=== PATIENT | male | born 1965 | race Caucasian/White ===

== ENCOUNTER 2020-01-06 09:44 | Emergency (ER) | payer OTHER ==
[2020-01-06] MEDS ORDERED: Fentanyl 100 MCG/2 ML VIAL ONE ×2 (09:59→10:34)
[2020-01-06] MEDS ORDERED: Ketorolac Tromethamine 30 MG/ML VIAL ONE (10:00)
[2020-01-06] MEDS ORDERED: Ondansetron PF 4 MG/2 ML Vial ONE (10:00)
[2020-01-06 10:22] LABS: #Basophils 0.1 thou/uL (0.0-0.2); #Eosinphils 0.1 thou/uL (0.0-0.7); #Lymphocytes 2.1 thou/uL (1.20-3.40); #Monocytes 0.6 thou/uL (0.11-0.59); #Neutrophils 9.9 thou/uL (1.40-6.50); %Eosinophils 0.6 % (0.0-10.0); %Lymphocytes 16.1 % (21.0-51.0); %Neutrophils 77.2 % (42.0-75.0); ALT (SGPT) 31 U/L (8-55); AST (SGOT) 21 U/L (5-34); Albumin 4.7 g/dL (3.5-5.0); Alkaline Phosphatase 73 U/L (40-110); Anion Gap 17 mmol/L (10-20); BUN (Urea Nitrogen) 9 mg/dL (8.4-25.7); Bilirubin, Total 0.3 mg/dL (0.2-1.2); Calc. Creatinine Clearance 0 mL/min (70-130); Calcium 8.8 mg/dL (7.8-10.44); Carbon Dioxide 24 mmol/L (22-29); Chloride 102 mmol/L (98-107); Estimated GFR-MDRD 70; Globulin 3.3 g/dL (2.4-3.5); Glucose 150 mg/dL (70-105); Hemoglobin 14.8 g/dL (14.0-18.0); Lipase 30 U/L (8-78); Mean Corpuscular HGB CONC 30.8 g/dL (32.0-36.0); Mean Corpuscular Hemoglobin 28.9 pg (27.0-31.0); Mean Corpuscular Volume 93.9 fL (78.0-98.0); Mean Platelet Volume 9.2 fL (7.4-10.4); Platelet Count 284 thou/uL (130-400); RBC Distribution Width 12.7 % (11.5-14.5); Sodium 139 mmol/L (136-145); White Blood Cell (WBC) Count 12.8 thou/uL (4.8-10.8)
[2020-01-06] MEDS ORDERED: Glycopyrrolate 0.4 MG/ 2 ML VIAL ONE (10:35)
--- NOTE | 2020-01-06 19:23 | CT ---
CT ABDOMEN AND PELVIS WITHOUT CONTRAST: 01/06/[address] of the abdomen and pelvis was performed for evaluation of abdominal pain. The lung bases ar e clear. The liver, spleen, pancreas, adrenal glands, kidneys, and abdominal aorta are all unremarkab le in appearance. The gallbladder is rather large, being 10.5 cm long. No stones were seen in it, nor was there any evidence of wall thickening. There was no sign of urinary tract calculi or obstruction . The bowel shows no dilation or wall thickening. The appendix was identified and appears normal. There is no free air or free fluid. CT of the pelvis shows no pelvic masses, fluid collections, or inflammatory changes. IMPRESSION: 1. Large gallbladder but no stones or thickening seen. 2. No dilated bowel. Appendix normal. 3. No urinary tract pathology seen. Preliminary report called to Dr. Mae at 1044 on 01/06/20. POS: HOME
== END 2020-01-06 11:16 | disposition home or self-care (01) ==
LOC: BURERS 09:44
DX: K80.50 Calculus of bile duct without cholangitis or cholecystitis without obstruction (principal); I10 Essential (primary) hypertension; Z87.891 Personal history of nicotine dependence; Z79.899 Other long term (current) drug therapy
CPT/HCPCS: 74176; 80053; 83690; 84484; 85025; 96374; 96375; J1885; J2405; J3010

== ENCOUNTER 2020-05-04 09:09 | Outpatient (CLI) | payer OTHER ==
[2020-05-04 09:35] LABS: #Basophils 0.1 thou/uL (0.0-0.2); #Eosinphils 0.4 thou/uL (0.0-0.7); #Lymphocytes 2.6 thou/uL (1.20-3.40); #Monocytes 0.9 thou/uL (0.11-0.59); #Neutrophils 5.8 thou/uL (1.40-6.50); %Basophils 1.2 % (0.0-1.0); %Eosinophils 4.3 % (0.0-10.0); %Lymphocytes 26.4 % (21.0-51.0); %Monocytes 9.3 % (0.0-10.0); %Neutrophils 58.8 % (42.0-75.0); Hemoglobin 14.2 g/dL (14.0-18.0); Mean Corpuscular HGB CONC 30.8 g/dL (32.0-36.0); Mean Corpuscular Hemoglobin 28.8 pg (27.0-31.0); Mean Corpuscular Volume 93.4 fL (78.0-98.0); Mean Platelet Volume 9.3 fL (7.4-10.4); Platelet Count 319 thou/uL (130-400); RBC Distribution Width 12.7 % (11.5-14.5); Red Blood Cell (RBC) Count 4.93 mill/uL (4.70-6.10); White Blood Cell (WBC) Count 9.9 thou/uL (4.8-10.8)
[2020-05-04 09:50] LABS: ALT (SGPT) 82 U/L (8-55); AST (SGOT) 36 U/L (5-34); Albumin 4.3 g/dL (3.5-5.0); Alkaline Phosphatase 116 U/L (40-110); Anion Gap 14 mmol/L (10-20); BUN (Urea Nitrogen) 8 mg/dL (8.4-25.7); Bilirubin, Total 0.5 mg/dL (0.2-1.2); Calc. Creatinine Clearance 0 mL/min (70-130); Calcium 9.1 mg/dL (7.8-10.44); Carbon Dioxide 27 mmol/L (22-29); Chloride 99 mmol/L (98-107); Estimated GFR-MDRD 81; Globulin 3.9 g/dL (2.4-3.5); Glucose 106 mg/dL (70-105); Potassium 4.2 mmol/L (3.5-5.1); Protein, Total 8.2 g/dL (6.0-8.3); Sodium 136 mmol/L (136-145)
--- NOTE | 2020-05-04 11:28 | CT ---
CT ABDOMEN AND PELVIS WITH CONTRAST: DATE: 05/04/2020. FINDINGS: Spiral CT of the abdomen and pelvis was done for evaluation in this patient who is post laparoscopic cholecystectomy. The lung bases are clear. The liver, spleen, pancreas, adrenal glands, kidneys, and abdominal aorta all appeared normal. There is a minimal amount of fluid or haziness in the gallbladder fossa at the site of the prior cholecystectomy. I am assuming that this is most likely just postop change. There is not a large fluid collection or obvious abscess. Bowel wall thickening is seen in the colon, predominantly from the hepatic flexure through the mid-tr ansverse colon. There is an area of inflammatory change in the fat around the mid transverse colon. There may be a little thickening in the right colon, though it is not as prominent as the areas abov e. In addition, it is notable that the patient's appendix is mildly dilated. It measures 8-9 mm in width. Nevertheless, I can see gas within it all the way to its tip and some contrast in portions of it. There did not appear to be significant inflammatory change around it. See discussion below. T he remainder of small and large bowel was unremarkable. No free air or free fluid was seen. No foca l intraabdominal abscess was seen. CT of the pelvis showed no pelvic masses, fluid collections, or inflammatory changes. IMPRESSION: 1. Minimal fluid or haziness in the gallbladder fossa, most likely just a postoperative change. 2. Thickening of the colonic bowel wall, particularly from about hepatic flexure through mid-transve rse colon, along with some mild inflammatory change in the pericolonic fat in the mid transverse colo n region. Colitis should be a consideration, whether infectious or inflammatory. 3. Widening of the appendix (8-9 mm). Appendicitis would normally be in the differential diagnosis; however, given that there is a little bit of gas seen all the way to its tip and some oral contrast is present within it, I have to wonder if this might be secondary inflammation of the appendix someho w connected to the colitis listed above. Further followup or serial observation may be needed. 4. No evidence of free air or signs of any focal abscess at this time. POS: HOME
[2020-05-04] MEDS ORDERED: Iopamidol 370 76% 100 ML VIAL ONE (12:09)
== END 2020-05-04 09:10 | disposition home or self-care (01) ==
LOC: BURCT 09:09
PROVIDERS: ATTEND Specialist
DX: Z48.815 Encounter for surgical aftercare following surgery on the digestive system (principal); K63.89 Other specified diseases of intestine; Z90.49 Acquired absence of other specified parts of digestive tract
CPT/HCPCS: 36415; 74177; 80053; 85025; Q9967